=== PATIENT | female | born 1940 | race Caucasian/White ===

== ENCOUNTER 2017-11-01 08:31 | Day surgery (SDC) | payer MEDICARE ==
[~2017-11-01] VITALS: Ht 162.6 cm; Wt 72.1 kg
[2017-11-01] VITALS (12 sets, daily range): BP systolic 126–158; BP diastolic 69–86; PULSE 16–88; RESP 16–20; TEMP 98.2–98.4; O2SAT 96–98
[2017-11-01] MEDS ORDERED: SYNT25TA PO (08:57)
[2017-11-01] MEDS ORDERED: LORA-650 PO (08:57)
[2017-11-01] MEDS ORDERED: VITA2000 PO (08:57)
[2017-11-01] MEDS ORDERED: ASPI81TA17 PO (08:57)
[2017-11-01] MEDS ORDERED: CRANCAP2 PO (08:57)
[2017-11-01] MEDS ORDERED: SODIUM CHLORID 0.9% 500 ML INJ 500 ML IV SCH (09:15)
[2017-11-01 09:20] LABS: AUTOMATED NEUTROPHIL # 2.4 TH/MM3 (1.8-7.7); BASOPHIL # 0.1 TH/MM3 (0-0.2); BASOPHIL % 1.5 % (0.0-2.0); EOSINOPHIL # 0.3 TH/MM3 (0-0.4); EOSINOPHIL % 6.3 % (0.0-4.0); HEMATOCRIT 38.7 % (35.0-46.0); HEMOGLOBIN 13.5 GM/DL (11.6-15.3); LYMPH % 37.3 % (9.0-44.0); LYMPHOCYTE # 1.8 TH/MM3 (1.0-4.8); MEAN CORPUSCULAR HEMOGLOBIN 30.3 PG (27.0-34.0); MEAN CORPUSCULAR HGB CONC 34.9 % (32.0-36.0); MEAN PLATELET VOLUME 7.8 FL (7.0-11.0); MONO % 5.2 % (0.0-8.0); MONOCYTE # 0.2 TH/MM3 (0-0.9); NEUT % 49.7 % (16.0-70.0); PLATELET COUNT 249 TH/MM3 (150-450); RED BLOOD COUNT 4.45 MIL/MM3 (4.00-5.30); RED CELL DISTRIBUTION WIDTH 13.4 % (11.6-17.2); WHITE BLOOD COUNT 4.8 TH/MM3 (4.0-11.0)
[2017-11-01 09:23] LABS: PROTHROMBIN TIME - PATIENT 10.1 SEC (9.8-11.6)
[2017-11-01] MEDS ORDERED: POVIDONE IODINE 5% (ANTISEPSIS KIT) 4 APPLICATIONS EACH NARE PRN (09:30)
[2017-11-01] MEDS ORDERED: LORazepam 1 MG TAB SL SCH (09:30)
[2017-11-01] MEDS ORDERED: LACTATED RINGER'S 1000 ML IV PRN (09:30)
[2017-11-01] MEDS ORDERED: CHLORHEXIDINE GLUCONATE 2 % 1 PACK (2 CLOTHS) TOPICAL PRN (09:30)
[2017-11-01] MEDS ORDERED: SODIUM CHLORID 0.9% 500 ML IV PRN (09:30)
[2017-11-01] MEDS ORDERED: METOPROLOL TARTRATE 25 MG TAB PO PRN (09:30)
[2017-11-01] MEDS ORDERED: MIDAZOLAM HCL 2 MG/2 ML VIAL ONE (09:47)
[2017-11-01 09:48] LABS: BICARBONATE 27.2 MEQ/L (21.0-32.0); CALCIUM 9.1 MG/DL (8.5-10.1); CREATININE 0.86 MG/DL (0.50-1.00)
[2017-11-01] MEDS ORDERED: HEPARIN-NS/PF FLUSH BAG 1,000 ML IV FLUSH ONE (11:03)
--- NOTE | 2017-11-01 11:10 | CATHPROC ---
Patient Name: PARVIZ HAIR Study #: [id number] Initial MD: Ashli Rosenthal Date of : 1940 Study Date: 11/01/2017 Cardiac Catheterization Report 11/01/2017 11:09:48 AM Financial #: [id number] 1 of 9 Patient Name: PARVIZ HAIR Study #: [id number] Initial MD: Ashli Rosenthal Date of : 1940 Study Date: 11/01/2017 Entire Case Report Patient Information Patient Name PARVIZ HAIR Date of 1940 Age 77 years Financial # [id number] Gender F AlternateID Lab Number 2 Room Number DC05 Height (in) 68.0 Height (cm) 172.7 BSA 1.87 Weight (lbs) 161.9 Weight (kg) 73.6 Patient Address/Phone Number Home Address [facility] Home Phone Number [phone] [facility] [address] [id number] [facility] [id number] Study Information Study Number Admission Scheduled Start Study Start [id number] Nov 01 2017 8:31AM 11/01/2017 Nov 01 2017 9:16AM [place] [facility] Electrophysiology Study Admit Source Facility Department Other [facility] - Starter 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 Physician and Clinical Staff Initial Ashli Ortiz Suede Cleaner Quinn FigueroaRT(R) Suede Cleaner Fartun Aguayo RCIS Other Anesthesia, SEEING EYE DOG TRAINER Recorder Dixie Mixon RN Scrub Christine JolleyRT(R) TECHJessica Procedures Performed Procedure Location (Site) Vessel Name Ablation Procedure RF Ablation Isthmus Other 11/01/2017 11:09:48 AM Financial #: [id number] 2 of 9 Patient Name: PARVIZ HAIR Study #: [id number] Initial MD: Ashli Rosenthal Date of : 1940 Study Date: 11/01/2017 Equipment Time Electronics Technology Department Chair Description Size Mfg Part Number Used/Scraped BIOSMinusNine TechnologiesTER CATHETER, CELSIUS, 4MM, D [id number] 10:26 FR 7 Used INC. TYPE QUAD *[id number] 09:19 [employer] PACK, CCL CUSTOM * Used *[id number] 09:19 MEDLINE PACER DOYLE, LIMB * 2530 *[id number] Used [id number] 09:19 [place] BL[employer]ET,WARM AIR CCL * Used *[id number] 09:20 [employer] MED[employer] CATHETER, JSN, QUAD FR 5 Used *[id number] 175215 09:20 [employer] MEDICAL CATHETER, JSN, QUAD FR 5 Used *[id number] [id number] 09:20 [employer] MEDICAL CATHETER, JSN, QUAD FR 5 Used *[id number] 094442 10:04 [employer] MEDICAL CATHETER, JSN, QUAD FR 5 Used *[id number] 09:19 [employer] MEDICAL ELECTRODE KIT, CHRIS X SURFACE * Used *[id number] 221895 09:19 [employer] MED[employer] SHEATH, EPS, FR5 FAST CATH FR 5 Used *[id number] 590742 09:19 [employer] MED[employer] SHEATH, EPS, FR5 FAST CATH FR 5 Used *[id number] 132673 09:19 [employer] MEDICAL SHEATH, EPS, FR5 FAST CATH FR 5 Used *[id number] 861415 10:16 [employer] MEDICAL SHEATH, EPS, FR5 FAST CATH FR 5 Used *[id number] 880432 09:19 [employer] MEDICAL SHEATH, EPS, FR6 FAST CATH FR 6 Used *[id number] 111165 09:20 [employer] MEDICAL SHEATH, EPS, FR8 FAST CATH FR 8 Used *[id number] [facility] PAD, ELECTROSURGICAL 09:19 * [id number] *[id number] Used SURGICAL GROUNDING (BLUE) Insurance Information Insurance Payor Private Health Insurance Third Republican Third Republican Number [facility] History: Allergies Allergy Reaction Penicillins Itching Labs Hgb (g/dl) Hct (%) RBC (MIL/MM3) WBC (l/cumm) Platelets (thousands) 11.60-17.00 35.00-51.00 4.00-5.90 4.00-11.00 150.00-450.00 13.0 38 4.5 4.8 249 11/01/2017 11:09:48 AM Financial #: [id number] 3 of 9 Patient Name: PARVIZ HAIR Study #: [id number] Initial MD: Ashli Rosenthal Date of : 1940 Study Date: 11/01/2017 Glucose (mg/dl) BUN (mg/dl) Creatinine (mg/dl) BUN:Creatinine (1:x) 74.00-106.00 7.00-18.00 0.50-1.30 10.00-20.00 110 16 0.8 20 Na (meq/l) K (meq/l) 136.00-145.00 3.50-5.10 141 4 INR (PTT:PT) 0.90-1.10 1 Medication Medication Total Dose (Bolus/Oral) Medication Total Dosage/Unit 1% XYLOCAINE 40 mL Medications (Bolus/Oral) Medication Time Given Dosage/Unit Administered By Reason 1% XYLOCAINE 11/01/2017 10:12:56 AM 20 mL Ashli Rosenthal 20 mL 1% XYLOCAINE given in lab by Ashli Rosenthal in Left Groin via Subcutaneous. 1% XYLOCAINE 11/01/2017 10:15:46 AM 20 mL Ashli Rosenthal 20 mL 1% XYLOCAINE given in lab by Ashli Rosenthal in Right Groin via Subcutaneous. Medication (Drip) Medication Time Given Dosage/Unit Concentration/Unit Diluent (ml) Solution ISUPREL 11/01/2017 10:47:09 AM 4 mcg/min 1 mg 250 NaCl .9 4 mcg/min ISUPREL given in lab by Anesthesia, SEEING EYE DOG TRAINER via Peripheral IV. Pump/Drip Flow = 60 ml/hr using NaCl .9 with a concentration of 1 mg in 250 ml. Ordered by Ashli Rosenthal. Reason: As per physicians verbal order. 11/01/2017 11:09:48 AM Financial #: [id number] 4 of 9 Patient Name: PARVIZ HAIR Study #: [id number] Initial MD: Ashli Rosenthal Date of : 1940 Study Date: 11/01/2017 Initial Case Assessment Cardiovascular HR Rhythm NIBP Chest Pain 87 st 174/83 0 Edema Present Skin color Skin None Normal Warm Dry Circulatory - Right Pulses Dorsalis Pedis 3 Scale (0,1,2,3,4,d) Circulatory - Left Pulses Dorsalis Pedis 3 Scale (0,1,2,3,4,d) Circulatory - Lower Extremities Color Lower Right Color Lower Left Normal Normal Neurological State Oriented to time-place- Alert Moves all extremities person Respiration - General Respiration Rate SpO2 (%) (B/min) 18 97 11/01/2017 11:09:48 AM Financial #: [id number] 5 of 9 Patient Name: PARVIZ HAIR Study #: [id number] Initial MD: Ashli Rosenthal Date of : 1940 Study Date: 11/01/2017 Final Case Assessment Cardiovascular HR Rhythm NIBP Chest Pain 93 sr 117/58 0 Edema Present Skin color Skin None Normal Warm Dry Circulatory - Right Pulses Dorsalis Pedis 3 Scale (0,1,2,3,4,d) Circulatory - Left Pulses Dorsalis Pedis 3 Scale (0,1,2,3,4,d) Circulatory - Lower Extremities Color Lower Right Color Lower Left Normal Normal Neurological State Oriented to time-place- Alert Moves all extremities person Respiration - General Respiration Rate SpO2 (%) (B/min) 16 99 Chronological Log Time Study Chronological Log 9:39:41 Patient arrived via Bed. 9:39:42 Patient Name, D.O.B, / Armband Verified By R.N. 9:39:43 Consent signed by the physician and the patient and verified by the Starter 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 staff. 9:39:44 Pre-op and post- op instructions given; patient acknowledges understanding of instructions. 9:39:45 Verbal Stimulation=2 Physical Stimulation=2 Airway=2 Respiration=2 TOTAL=8. (0=absent, 1=li mited, 2=present) 9:39:46 Anesthesia at bedside. Assumes care of patient. 9:39:59 Patient has been NPO for More than 6Hrs. 9:40:01 Skin Breakdown-none per pt 9:40:07 Patient Warmer Placed on the Table. 11/01/2017 11:09:48 AM Financial #: [id number] 6 of 9 Patient Name: PARVIZ HAIR Study #: [id number] Initial MD: Ashli Rosenthal Date of : 1940 Study Date: 11/01/2017 9:40:08 Disposable Defibrillator Pads Placed On Patient. 9:40:09 Gurinder Prominences Protected 9:40:11 A # 20 IV was noted in the Antecubital (left). Grade = 0 0.9ns kvo 9:40:23 A # 20 IV was noted in the Antecubital (right). Grade = 0 0.9ns kvo 9:40:33 History and physical on the chart. Assessment: Initial Case, HR=87 BPM, Rhythm=st, FYVH=412/83 mmhg, Chest Pain=0, Edema=None, Col or=Normal, Skin = Warm, Dry Right Pulses: Shekhar Ped=3 Left Pulses: Shekhar Ped=3 9:49:22 Lower Right Extremities: Color=Normal Lower Left Extremities: Color=Normal Neurological: State=Alert, Ox3, DECKER Respiration: Resp=18 B/min, SpO2=97 % 9:50:34 Table restraints applied according to hospital policy 9:55:41 Bilateral groins prepped with 2% chlorhexidine, and draped after a 3 minute waiting time. 10:01:43 MD paged 10:02:44 MD responded 10:09:47 MD arrived. Time Out. Correct patient, procedure, procedure equipment, site and side verified with physicia n present. Time 10:12:00 concurred by MD, individual staff and SEEING EYE DOG TRAINER. Time Out #2 - Consents verified, patient in correct position, all results are labled and displa yed, safety precautions 10:12:29 taken, antibiotics administered. Time out concurred by MD, individual staff and SEEING EYE DOG TRAINER in procedu re 10:12:37 Reference ECG taken 10:12:52 Case Start 10:12:56 20 mL 1% XYLOCAINE given in lab by Ashli Rosenthal in Left Groin via Subcutaneous. 10:13:24 Vascular access was obtained in the Fem Vein (left). 10:13:26 Vascular access was obtained in the Fem Vein (left). 10:13:33 Vascular access was obtained in the Fem Vein (left). 10:13:44 A SHEATH, EPS, FR5 FAST CATH FR 5 was advanced into the Fem Vein (left) using the Modified Seldinger technique. 10:13:55 A SHEATH, EPS, FR5 FAST CATH FR 5 was advanced into the Fem Vein (left) using the Modified Seldinger technique. 10:14:02 A SHEATH, EPS, FR5 FAST CATH FR 5 was advanced into the Fem Vein (left) using the Modified Seldinger technique. A SHEATH, EPS, FR5 FAST CATH FR 5 was advanced into the Fem Vein (left) using the Modified Seld carolin technique. 10:14:08 1st sheath damaged. 10:15:46 20 mL 1% XYLOCAINE given in lab by Ashli Rosenthal in Right Groin via Subcutaneous. 10:16:01 Vascular access was obtained in the Fem Vein (right). 10:16:21 Vascular access was obtained in the Fem Vein (right). 10:16:23 A SHEATH, EPS, FR6 FAST CATH FR 6 was advanced into the Fem Vein (right) using the Modified Seldinger technique. 10:16:31 A SHEATH, EPS, FR8 FAST CATH FR 8 was advanced into the Fem Vein (right) using the Modified Seldinger technique. A CATHETER, JSN, QUAD FR 5 was advanced vis Fem Vein (left) and placed in the CS. Placement was visually 10:20:04 confirmed under fluoroscopy. A CATHETER, JSN, QUAD FR 5 was advanced vis Fem Vein (left) and placed in the HIS. Placement wa s visually 10:20:12 confirmed under fluoroscopy. A CATHETER, JSN, QUAD FR 5 was advanced vis Fem Vein (left) and placed in the RVA. Placement wa s visually 10:20:36 confirmed under fluoroscopy. 11/01/2017 11:09:48 AM Financial #: [id number] 7 of 9 Patient Name: PARVIZ HAIR Study #: [id number] Initial MD: Ashli Rosenthal Date of : 1940 Study Date: 11/01/2017 A CATHETER, JSN, QUAD FR 5 was advanced vis Fem Vein (left) and placed in the HRA. Placement w as visually 10:20:43 confirmed under fluoroscopy. 10:21:31 EPS in progress. 10:25:41 RF Ablation of the Isthmus with a CATHETER, TERA, 4MM, D TYPE QUAD FR 7. 10:27:55 ablation in progress 4 mcg/min ISUPREL given in lab by Anesthesia, SEEING EYE DOG TRAINER via Peripheral IV. Pump/Drip Flow = 60 ml/h r using NaCl .9 with 10:47:09 a concentration of 1 mg in 250 ml. Ordered by Ashli Rosenthal. Reason: As per physicians verbal order. 10:52:26 Isuprel off. EPS in progress. 11:01:10 EPs complete. 11:01:44 All catheter(s) removed without difficulty. 11:05:40 Sheath(s) left in place, secured, 0.9ns kvo connected and will be removed in Holding Area 11:06:49 PACU called. Spoke to Jennifer 11:06:53 Bedside Report will be given. 11:07:01 Ablation procedure performed: SVT. 11:07:08 EP Procedure was performed. 11:07:27 Case End 11:07:41 Sterile dressing applied to site 11:07:42 No case complications noted. 11:07:43 Cine recording checked. 11:07:47 Defibrillator and ground pads removed. Skin intact. Assessment: Final Case, HR=93 BPM, Rhythm=sr, ZRXL=144/58 mmhg, Chest Pain=0, Edema=None, [place] r=Normal, Skin = Warm, Dry Right Pulses: Shekhar Ped=3 Left Pulses: Shekhar Ped=3 11:08:00 Lower Right Extremities: Color=Normal Lower Left Extremities: Color=Normal Neurological: State=Alert, Ox3, DECKER Respiration: Resp=16 B/min, SpO2=99 % 11:17:50 [facility] - Contrast Media Used In Study Contrast Total Opened (mL) Total Used (mL) Total Wasted (mL) Unspecified 0 0 0 End Study - Maximum Contrast Load Max Contrast Load (mL) 459.9 11/01/2017 11:09:48 AM Financial #: [id number] Patient Name: PARVIZ HAIR Study #: [id number] Initial MD: Ashli Rosenthal Date of : 1940 Study Date: 11/01/2017 End Study - Radiation Exposure Fluoro Time (minutes) 3.8 End Study - Patient Disposition Complications Transferred To Interventional Outcome No Telemetry Bed successful 11/01/2017 11:09:48 AM Financial #: [id number]
[2017-11-01] MEDS ORDERED: PROPOFOL 200 MG/20 ML AMP IV ONE (12:00)
[2017-11-01] MEDS ORDERED: ATROPINE SULFATE 1 MG/ML VIAL IV PUSH PRN (14:30)
[2017-11-01] MEDS ORDERED: ONDANSETRON HCL 4 MG/2 ML VIAL IV PUSH PRN (14:30)
[2017-11-01] MEDS ORDERED: LIDOCAINE HCL 1% 50 ML VIAL INFIL PRN (14:30)
[2017-11-01] MEDS ORDERED: LORazepam 2 MG/ML VIAL IV PUSH PRN (14:30)
[2017-11-01] MEDS ORDERED: oxyCODONE/ACETAMINOPHEN 5 MG/325 MG TAB PO PRN ×2 (14:30)
[2017-11-01] MEDS ORDERED: SODIUM CHLOR 0.9% 250 ML INJ 250 ML IV PRN (14:30)
[2017-11-01] MEDS ORDERED: BACITRACIN OINT 0.9 GM PKT TOP ONE (15:00)
--- NOTE | 2017-11-01 18:26 | EKG ---
Date Performed: 11/01/2017 Time Performed: 09:03:32 PTAGE: 77 years EKG: Sinus rhythm Normal ECG NO PREVIOUS TRACING DOCTOR: Karina Low Interpretating Date/Time 11/01/2017 18:20:56
[2017-11-02] VITALS: BP 120/64; PULSE 70; PULSE 72; RESP 20; TEMP 98.2; O2SAT 95
[2017-11-02 01:00] VITALS: PULSE 66
[2017-11-02 02:00] VITALS: PULSE 68
[2017-11-02 03:00] VITALS: PULSE 104
[2017-11-02 04:00] VITALS: BP 124/77; PULSE 68; PULSE 75; RESP 18; TEMP 98.2; O2SAT 97
[2017-11-02 05:00] VITALS: PULSE 68
--- NOTE | 2017-11-02 07:58 | EKG ---
Date Performed: 11/01/2017 Time Performed: 21:02:08 PTAGE: 77 years EKG: Sinus rhythm Normal ECG PREVIOUS TRACING : 11/01/2017 09.03 DOCTOR: Eric Phillips Interpretating Date/Time 11/02/2017 07:54:38
--- NOTE | 2017-11-02 08:10 | PD.CARD.PN ---
Subjective Subjective Remarks Feels okay. Objective Medications Current Medications Medications (Trade) Dose Ordered Sig/Shayna Route Start Time Stop Time Status Last Admin Sodium Chloride 500 ml @ 30 mls/hr [id number] IV 11/01/17 09:15 (Ativan) 1 mg [employer] MERCHANDISER SL 11/01/17 09:30 11/04/17 09:29 Lactated Ringer's 1,000 ml @ 30 mls/hr Q24H PRN IV 11/01/17 09:30 11/04/17 09:29 Sodium Chloride 500 ml @ 30 mls/hr [id number] PRN IV 11/01/17 09:30 11/04/17 09:29 (Lopressor) 25 mg [employer] MERCHANDISER PRN PO 11/01/17 09:30 11/04/17 09:29 (Betadine 5% Antisepsis Kit) 1 applic [employer] MERCHANDISER PRN EACH NARE 11/01/17 09:30 11/04/17 09:29 (Chlorhexidine 2% Cloth) 3 pack [employer] MERCHANDISER PRN TOPICAL 11/01/17 09:30 11/04/17 09:29 (Percocet 5-325 Mg) 1 tab Q4H PRN PO 11/01/17 14:30 (Percocet 5-325 Mg) 2 tab Q4H PRN PO 11/01/17 14:30 (Ativan Inj) 0.5 mg UNSCH PRN IV PUSH 11/01/17 14:30 11/02/17 14:29 (Atropine Inj) 0.5 mg UNSCH PRN IV PUSH 11/01/17 14:30 Sodium Chloride 250 ml @ 500 mls/hr ONCE PRN IV 11/01/17 14:30 11/02/17 14:29 (Zofran Inj) 4 mg Q4H PRN IV PUSH 11/01/17 14:30 (Xylocaine 1% Inj (50 ml)) 10 ml UNSCH PRN INFIL 11/01/17 14:30 11/02/17 14:29 Vital Signs / I&O Vital Signs Date Time Temp Pulse Resp B/P (MAP) Pulse Ox O2 Delivery O2 Flow Rate FiO2 11/02/17 05:00 68 11/02/17 04:00 Room Air 11/02/17 04:00 98.2 75 18 124/77 (93) 97 11/02/17 04:00 68 2/21/18 03:00 104 11/02/17 02:00 68 11/02/17 01:00 66 11/02/17 00:00 72 11/02/17 00:00 98.2 70 20 120/64 (82) 95 11/02/17 00:00 Room Air 11/01/17 23:00 68 11/01/17 22:00 68 11/01/17 21:00 82 11/01/17 20:00 84 11/01/17 20:00 98.4 78 20 126/69 (88) 96 11/01/17 20:00 Room Air 11/01/17 19:00 88 11/01/17 16:21 84 11/01/17 15:30 98.2 83 16 130/72 (91) 98 11/01/17 15:00 79 11/01/17 14:30 81 11/01/17 13:00 72 11/01/17 12:00 81 11/01/17 12:00 98.2 81 16 133/73 (93) 98 11/01/17 08:57 98.2 16 16 158/86 (110) 97 I/O 11/01/17 11/01/17 11/01/17 11/02/17 11/02/17 11/02/17 07:00 15:00 23:00 07:00 15:00 23:00 Intake Total 0 ml 800 ml 240 ml Output Total 600 ml 900 ml Balance 0 ml 200 ml -660 ml Intake Oral 800 ml 240 ml IV Total 0 ml Output Urine Total 600 ml 900 ml Physical Exam GENERAL: Well-nourished, well-developed patient. SKIN: Warm and dry. Groin site soft without bruising or bleeding. HEAD: Normocephalic. EYES: No scleral icterus. No injection or drainage. NECK: Supple, trachea midline. No JVD or lymphadenopathy. CARDIOVASCULAR: Regular rate and rhythm without murmurs, gallops, or rubs. RESPIRATORY: Breath sounds equal bilaterally. No accessory muscle use. GASTROINTESTINAL: Abdomen soft, non-tender, nondistended. EXTREMITIES: No cyanosis, or edema. NEUROLOGICAL: Awake, alert, and oriented x 3. Non-focal. Laboratory Laboratory Tests Test 11/01/17 08:50 11/01/17 08:55 Prothrombin Time 10.1 SEC Prothromb Time International Ratio 1.0 RATIO Activated Partial Thromboplast Time 23.3 SEC Blood Urea Nitrogen 16 MG/DL Creatinine 0.86 MG/DL Random Glucose 110 MG/DL Calcium Level 9.1 MG/DL Sodium Level 141 MEQ/L Potassium Level 4.0 MEQ/L Chloride Level 107 MEQ/L Carbon Dioxide Level 27.2 MEQ/L Anion Gap 7 MEQ/L Estimat Glomerular Filtration Rate 64 ML/MIN White Blood Count 4.8 TH/MM3 Red Blood Count 4.45 MIL/MM3 Hemoglobin 13.5 GM/DL Hematocrit 38.7 % Mean Corpuscular Volume 87.0 FL Mean Corpuscular Hemoglobin 30.3 PG Mean Corpuscular Hemoglobin Concent 34.9 % Red Cell Distribution Width 13.4 % Platelet Count 249 TH/MM3 Mean Platelet Volume 7.8 FL Neutrophils (%) (Auto) 49.7 % Lymphocytes (%) (Auto) 37.3 % Monocytes (%) (Auto) 5.2 % Eosinophils (%) (Auto) 6.3 % Basophils (%) (Auto) 1.5 % Neutrophils # (Auto) 2.4 TH/MM3 Lymphocytes # (Auto) 1.8 TH/MM3 Monocytes # (Auto) 0.2 TH/MM3 Eosinophils # (Auto) 0.3 TH/MM3 Basophils # (Auto) 0.1 TH/MM3 CBC Comment DIFF FINAL Differential Comment Assessment and Plan Problem List: (1) SVT (supraventricular tachycardia) ICD Codes: I47.1 - Supraventricular tachycardia Plan: Sinus rhythm on telemetry. (2) S/P radiofrequency ablation operation for arrhythmia ICD Codes: Z98.890 - Other specified postprocedural states; Z86.79 - Personal history of other diseases of the circulatory system Plan: Stable for discharge home. Follow-up with Dr. Rosenthal in 3 weeks per my discussion with him. Adilene Bailey Nov 02, 2017 08:10
--- NOTE | 2017-11-02 15:27 | EKG ---
Date Performed: 11/02/2017 Time Performed: 05:25:32 PTAGE: 77 years EKG: Sinus rhythm Normal ECG PREVIOUS TRACING : 11/01/2017 21.02 DOCTOR: Eric Phillips Interpretating Date/Time 11/02/2017 15:25:23
--- NOTE | 2017-11-07 10:09 | MA ---
cc: AVEL ROSENTHAL M.D. 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 INDICATION FOR PROCEDURE Mrs. Bo is a 77-year-old female with recurrent episode of supraventricular tachyarrhythmia for the past 20-30 years. At the last ER visit her heart rate was around 165 beats per minute. She was referred for electrophysiology study and ablation. The risks, the nature and the benefit of the procedure were clearly stated to her. The risks include pneumothorax, cardiac perforation, stroke and even . She understood and agreed to proceed. DETAILS OF PROCEDURE After written informed consent was obtained, the patient was brought to the EP lab where she was prepped and draped in the usual sterile fashion. Conscious sedation was initiated and maintained throughout the procedure by the anesthesiologist. Once sedation was verified, the right and left inguinal area was anesthetized with 2% Xylocaine. Using modified Seldinger technique, the left femoral vein was cannulated on three occasions and three guidewires were advanced. Over the wires three 5 Dominican Hemaquets were advanced. Then the right femoral vein was cannulated on two occasions and two guidewires were advanced. Over the wires a 6 and 8 Dominican Hemaquet were advanced. Then under fluoroscopic guidance through the 5 and 6 Dominican Hemaquet, four 5 Dominican Brunilda curved quadripolar electrophysiology catheters were advanced and positioned on the His, upper right atrium, coronary sinus and right ventricular apex. Basic intervals were measured and were within normal limits. At this point atrial pacing protocol was performed. Atrial pacing protocol consisted of incremental atrial pacing as well as programmed stimulation with 110 cycle length and up to one extrastimuli delivered. 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 It was paced terminated. Then through the 8 Dominican Hemaquet, a Cordis-Emmanuel D-curve 4 mm mapping and radiofrequency ablation catheter was advanced. Using the [employer] mapping system a three-dimensional configuration of the right atrium was obtained. Then the catheter was placed at the tricuspid valve annulus. When the big and the small trifurcated "A" was observed, radiofrequency energy was delivered. The patient went into junctional rhythm. Further burn was delivered in the area. Then atrial pacing protocol was repeated again and no tachyarrhythmia was induced, no jump observed, no echo beat observed. Then Isuprel infusion was initiated at 5 mcg. Atrial and ventricular pacing protocol was repeated again; no tachyarrhythmia was induced. Post Isuprel no tachyarrhythmia was induced. At that point the procedure was complete. All catheters were removed. The patient is going to be transferred to the telemetry unit. No incident report. The patient tolerated the procedure. Blood loss minimal. FINDINGS 1. Electrocardiogram: At baseline the patient was in sinus. Post procedure electrocardiogram was unchanged. 2. Basic intervals: Basic cycle length was around 830 milliseconds, AH at 60 and HV at 110 beats per minute. 3. 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 It was pace terminated. Slow pathway was mapped and ablated. Ablation was successful. 4. Ventricular pacing protocol: There was VA conduction, it was concentric. No tachyarrhythmia was induced. 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 COMMENT/RECOMMENDATION The patient is going to be transferred to the telemetry unit. He will be observed and when stable will be discharged home. Avel Rosenthal MD HS/BT /9:18 AM /9:48 AM
== END 2017-11-02 09:13 | disposition home or self-care (01) ==
LOC: HDOC 08:31 → HDIC 08:31 → HCIS 11:37 → HDOC 11-02 09:13
PROVIDERS: ATTEND Internal Medicine Interventional Cardiology
DX: I47.1 Supraventricular tachycardia (principal); E03.9 Hypothyroidism, unspecified; R53.83 Other fatigue; M19.90 Unspecified osteoarthritis, unspecified site; Z01.810 Encounter for preprocedural cardiovascular examination; Z01.818 Encounter for other preprocedural examination
CPT/HCPCS: 00537; 80048; 85025; 85610; 85730; 86850; 86900; 86901; 93005; 93623; 93654; C1730; C1732; J1644; J2250; J3010; 93613